=== PATIENT | female | born 1995 | race Caucasian/White ===

== ENCOUNTER 2017-08-05 22:57 | Emergency (ER) | payer OTHER ==
[~2017-08-05] VITALS: Ht 157.5 cm; Wt 80.0 kg
[~2017-08-05 22:57] MED LIST: CLIN150 PO
[2017-08-05 23:00] VITALS: BP 132/79; PULSE 103; RESP 18; TEMP 98; O2SAT 100
--- NOTE | 2017-08-05 23:28 | PD ---
HPI Chief Complaint: Flank/Kidney Pain Time Seen by Provider: 23:11 Travel History International Travel<30 days: No Contact w/Intl Traveler<30days: No Traveled to known affect area: No History of Present Illness HPI The patient is a 21 year old female who presents to the [facility] emergency department with a history of right-sided flank pain that began this morning. She reports that the pain is sharp in character and initially was coming and going, however now it is more constant. She reports that yesterday she did have some dysuria with urinary frequency and urgency. She denies having any prior history of urinary tract infections. She denies having any vaginal discharge or unusual vaginal bleeding. Her last menstrual cycle was 3 weeks ago. She denies having any nausea, vomiting, or diarrhea associated with this. She denies having any abdominal pain. On review of systems otherwise she denies having any recent fevers, cough, congestion, neck pain, chest pain, shortness of breath, or neurologic symptoms. PFS Past Medical History Narrative Medical The patient's past medical history is reportedly none Medical History: Denies Significant Hx Blood Disorders: No Anxiety: No Depression: No Cancer: No Cardiovascular Problems: No Congestive Heart Failure: No Endocrine: No Implanted Vascular Access Dvce: No Musculoskeletal: No Neurologic: No Psychiatric: No Respiratory: No ?: Not LMP: 07/19/17 Past Surgical History Surgical History: No Previous Surgery Other Surgery: No Social History Alcohol Use: Yes (3 times per week) Tobacco Use: Yes (One half pack per day) Substance Use: Yes (MARIJUANA LAST WEEK) Allergies-Medications (Allergen,Severity, Reaction): Coded Allergies: *MDRO Multi-Drug Resistant Organism (Verified Adverse Reaction, Unknown, ) 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) Reported Meds & Prescriptions Reported Meds & Active Scripts Active Bactrim DS (Sulfamethoxazole-Trimethoprim) 800-160 Mg Tab 1 Tab PO BID Review of Systems Except as stated in HPI: all other systems reviewed are Neg General / Constitutional: No: Fever Eyes: No: Visual changes HENT: No: Headaches Cardiovascular: No: Chest Pain or Discomfort Respiratory: No: Shortness of Breath Gastrointestinal: No: Nausea, Vomiting, Diarrhea, Abdominal Pain Genitourinary: Positive: Urgency, Frequency, Dysuria, Flank Pain (Right side) Musculoskeletal: No: Pain Skin: No Rash Neurologic: No: Weakness, Focal Abnormalities, Change in Mentation, Slurred Speech, Sensory Disturbance Psychiatric: No: Depression Endocrine: No: Polydipsia Hematologic/Lymphatic: No: Easy Bruising Physical Exam Narrative General: The patient is a well-developed well-nourished female in no acute distress. Head and Neck exam: Head is normocephalic atraumatic. Eyes: EOMI, pupils are equal round and reactive to light. Nose: Midline septum with pink mucous membranes Mouth: Dentition unremarkable. Moist mucus membranes. Posterior oropharynx is not erythematous. No tonsillar hypertrophy. Uvula midline. Airway patent. Neck: No palpable lymphadenopathy. No nuchal rigidity. No thyromegaly. Cardiovascular: Regular rate and rhythm without murmurs, gallops, or rubs. Lungs: Clear to auscultation bilaterally. No wheezes, rhonchi, or rales. Abdomen: Soft, without tenderness to palpation in all 4 quadrants of the abdomen. No guarding, rebound, or rigidity. Normal bowel sounds are audible. No tenderness on palpation of McBurney's point. Extremities: No clubbing, cyanosis, or edema. 2+ pulses in all 4 extremities. Back: No spinous process tenderness to palpation. Right-sided CVA tenderness to palpation. Neurologic Exam: Grossly nonfocal. Skin Exam: No rash noted. Intact skin that is warm and dry. Data Data Last Documented VS Vital Signs Date Time Temp Pulse Resp B/P (MAP) Pulse Ox O2 Delivery O2 Flow Rate FiO2 08/06/17 03:07 08/05/17 23:42 98.9 92 16 97 Room Air Orders Orders Complete Blood Count With Diff (08/05/17 23:18) Basic Metabolic Panel (Bmp) (08/05/17 23:18) Urinalysis - C+S If Indicated (08/05/17 23:18) Iv Access Insert/Monitor (08/05/17 23:18) Ecg Monitoring (08/05/17 23:18) Oximetry (08/05/17 23:18) Ed Urine Pregnancytest Poc (08/05/17 23:18) Sodium Chlor 0.9% 1000 Ml Inj (Ns 1000 M (08/05/17 23:30) Ondansetron Inj (Zofran Inj) (08/05/17 23:30) Ketorolac Inj (Toradol Inj) (08/05/17 23:30) Urine Culture (08/05/17 23:29) Ct Abd/Pel W/O Iv Contrast (08/06/17 00:17) Ceftriaxone Inj (Rocephin Inj) (08/06/17 01:30) Labs Laboratory Tests Test 08/05/17 23:29 White Blood Count 13.8 TH/MM3 Red Blood Count 4.04 MIL/MM3 Hemoglobin 13.1 GM/DL Hematocrit 37.9 % Mean Corpuscular Volume 93.8 FL Mean Corpuscular Hemoglobin 32.4 PG Mean Corpuscular Hemoglobin Concent 34.5 % Red Cell Distribution Width 13.3 % Platelet Count 294 TH/MM3 Mean Platelet Volume 7.4 FL Neutrophils (%) (Auto) 76.4 % Lymphocytes (%) (Auto) 15.9 % Monocytes (%) (Auto) 6.1 % Eosinophils (%) (Auto) 1.3 % Basophils (%) (Auto) 0.3 % Neutrophils # (Auto) 10.5 TH/MM3 Lymphocytes # (Auto) 2.2 TH/MM3 Monocytes # (Auto) 0.8 TH/MM3 Eosinophils # (Auto) 0.2 TH/MM3 Basophils # (Auto) 0.0 TH/MM3 CBC Comment DIFF FINAL Differential Comment Urine Color LIGHT-YELLOW Urine Turbidity HAZY Urine pH 7.5 Urine Specific [place] 1.006 Urine Protein TRACE mg/dL Urine Glucose (UA) NEG mg/dL Urine Ketones NEG mg/dL Urine Occult Blood MOD Urine Nitrite NEG Urine Bilirubin NEG Urine Urobilinogen LESS THAN 2.0 MG/DL Urine Leukocyte Esterase LARGE Urine RBC 5 /hpf Urine WBC 138 /hpf Urine Squamous Epithelial Cells 2 /hpf Urine Amorphous Sediment RARE Urine Bacteria OCC /hpf Microscopic Urinalysis Comment CULTURE INDICATED Blood Urea Nitrogen 9 MG/DL Creatinine 0.93 MG/DL Random Glucose 89 MG/DL Calcium Level 8.2 MG/DL Sodium Level 138 MEQ/L Potassium Level 3.4 MEQ/L Chloride Level 103 MEQ/L Carbon Dioxide Level 29.4 MEQ/L Anion Gap 6 MEQ/L Estimat Glomerular Filtration Rate 76 ML/MIN MDM Medical Decision Making Medical Screen Exam Complete: Yes Emergency Medical Condition: Yes Medical Record Reviewed: Yes Interpretation(s) Last Impressions Abdomen/Pelvis CT 08/06/17 0017 Signed Impressions: Service Date/Time: Sunday, August 06, 2017 00:34 - CONCLUSION: Left ovarian cyst suspected. The study is otherwise unremarkable. \ Kp Hatch MD Differential Diagnosis Cystitis, versus pyelonephritis, versus kidney stone, versus musculoskeletal strain Narrative Course During the course of the patient's emergency department visit, the patient's history, examination, and differential diagnosis were reviewed with the patient. The patient was placed on a teletypesetter monitor with oximetry and frequent blood pressure monitoring. The patient had IV access obtained and blood work sent for analysis. The patient was initially provided normal saline 1 L IV fluid bolus, Toradol 15 mg IV, Zofran 4 mg IV. The patient's laboratory studies were reviewed and remarkable for A white count of 13.8, hemoglobin 13.1, platelets 294 with 76.4 neutrophils. Basic metabolic profile is remarkable for potassium 3.4, GFR 76, calcium 8.2. Urinalysis shows moderate occult blood, large leukocyte esterase, 5 RBCs, 138 WBCs, occasional bacteria, culture indicated. The patient was given Rocephin 1 g IV for urinary tract infection. A CT scan without IV contrast of the abdomen and pelvis is ordered to rule out underlying kidney stone. CT scan of the abdomen and pelvis showed a left ovarian cyst, no other acute abnormality. The patient will be discharged home on antibiotic. She was given a prescription for Bactrim. The patient is resting comfortably and feels better, is alert and in no distress. The patient's results and examination findings were discussed with the patient. The repeat examination is unremarkable and benign. The history, exam, diagnostic testing, and current condition do not suggest any significant pathology to warrant further testing, continued ED treatment, admission, or surgical evaluation at this point. The vital signs have been stable. The patient does not have uncontrollable pain, intractable vomiting, or other significant symptoms. The patient's condition is stable and appropriate for discharge. The patient will pursue further outpatient evaluation with a primary care physician or other designated or consulting physician as indicated in the discharge instructions. The patient expressed understanding and was agreeable with this plan. Diagnosis Primary Impression: Pyelonephritis Referrals: [facility] 2 days Patient Instructions: General Instructions, Kidney Infection (ED) Med/Other Pt SpecificInfo: Prescription(s) given Scripts Sulfamethoxazole-Trimethoprim (Bactrim DS) 800-160 Mg Tab 1 TAB PO BID for Infection, #20 TAB 0 Refills Prov: Chuyita Schuster MD 08/06/17 Disposition: 01 DISCHARGE HOME Condition: Stable Chuyita Schuster MD Aug 05, 2017 23:28
[2017-08-05] MEDS ORDERED: SODIUM CHLOR 0.9% 1000 ML INJ 1,000 ML IV ONE (23:30)
[2017-08-05] MEDS ORDERED: KETOROLAC TROMETHAMINE 30 MG/ML (IVP) VIAL IV PUSH ONE (23:30)
[2017-08-05] MEDS ORDERED: ONDANSETRON HCL 4 MG/2 ML VIAL IV ONE (23:30)
[2017-08-05 23:42] VITALS: BP 130/77; PULSE 92; RESP 16; TEMP 98.9; O2SAT 97
[2017-08-05 23:45] LABS: AUTOMATED NEUTROPHIL # 10.5 TH/MM3 (1.8-7.7); BASOPHIL % 0.3 % (0.0-2.0); EOSINOPHIL # 0.2 TH/MM3 (0-0.4); EOSINOPHIL % 1.3 % (0.0-4.0); HEMATOCRIT 37.9 % (35.0-46.0); HEMOGLOBIN 13.1 GM/DL (11.6-15.3); LYMPH % 15.9 % (9.0-44.0); LYMPHOCYTE # 2.2 TH/MM3 (1.0-4.8); MEAN CELL VOLUME 93.8 FL (80.0-100.0); MEAN CORPUSCULAR HEMOGLOBIN 32.4 PG (27.0-34.0); MEAN CORPUSCULAR HGB CONC 34.5 % (32.0-36.0); MEAN PLATELET VOLUME 7.4 FL (7.0-11.0); MONO % 6.1 % (0.0-8.0); MONOCYTE # 0.8 TH/MM3 (0-0.9); NEUT % 76.4 % (16.0-70.0); PLATELET COUNT 294 TH/MM3 (150-450); RED BLOOD COUNT 4.04 MIL/MM3 (4.00-5.30); RED CELL DISTRIBUTION WIDTH 13.3 % (11.6-17.2); WHITE BLOOD COUNT 13.8 TH/MM3 (4.0-11.0)
[2017-08-05 23:49] LABS: AMORPHOUS SEDIMENT, URINE RARE; BACTERIA, URINE OCC /hpf; BILIRUBIN, URINE NEG (NEG); BLOOD, URINE MOD (NEG); GLUCOSE,URINE NEG (NEG); KETONE, URINE NEG (NEG); NITRITE,URINE NEG (NEG); PH, URINE 7.5 (5.0-8.5); SQUAMOUS EPITHELIAL CELL URINE 2 /hpf (0-5); URINE COLOR LIGHT-YELLOW (YELLW/STRAW); URINE LEUKOCYTE ESTERASE LARGE (NEG)
[2017-08-05 23:59] LABS: BICARBONATE 29.4 MEQ/L (21.0-32.0); CALCIUM 8.2 MG/DL (8.5-10.1); CREATININE 0.93 MG/DL (0.50-1.00)
--- NOTE | 2017-08-06 00:56 | RADRPT ---
EXAM DATE/TIME: 08/06/2017 00:34 [place] COMPARISON: No previous studies available for comparison. INDICATIONS : Right flank pain with hematuria and dysuria. ORAL CONTRAST: No oral contrast ingested. RADIATION DOSE: 20.06 CTDIvol (mGy) MEDICAL HISTORY : None SURGICAL HISTORY : None. ENCOUNTER: Initial ACUITY: 1 day PAIN SCALE: 5/10 LOCATION: Right flank TECHNIQUE: Volumetric scanning of the abdomen and pelvis was performed. Using automated exposure control and ad justment of the mA and/or kV according to patient size, radiation dose was kept as low as reasonably achievable to obtain optimal diagnostic quality images. DICOM format image data is available electro nically for review and comparison. FINDINGS: There is mild hepatic steatosis. Gallbladder, spleen, pancreas, adrenal glands, kidneys, urinary blad donna unremarkable. No hydronephrosis is seen. No discrete renal calculi or ureteral stones are present . Uterus and right ovary are unremarkable. Left ovary measures 4.4 x 3.5 cm in AP and transverse dime nsion. A 3.7 cm cyst is suspected. No evidence of bowel obstruction. Appendix is normal. No adenopath y or aneurysm. The lung bases are clear. Osseous structures are intact. CONCLUSION: Left ovarian cyst suspected. The study is otherwise unremarkable. \ Kp Hatch MD on August 06, 2017 at 0:51 Board Certified Radiologist. This report was verified electronically.
[2017-08-06] MEDS ORDERED: cefTRIAXone INJ 1,000 MG in SODIUM CHLORIDE 0.9% INJ 100 ML IV ONE (01:30)
[2017-08-06] MEDS ORDERED: BACT800T5 PO (02:51)
== END 2017-08-06 03:13 | disposition home or self-care (01) ==
LOC: NEPE 22:57
DX: N12 Tubulo-interstitial nephritis, not specified as acute or chronic (principal); B96.20 Unspecified Escherichia coli [E. coli] as the cause of diseases classified elsewhere; F17.210 Nicotine dependence, cigarettes, uncomplicated; F12.90 Cannabis use, unspecified, uncomplicated
CPT/HCPCS: 74176; 80048; 81001; 84703; 85025; 87077; 87086; 87186; 96374; 96375; 99284; J0696; J1885; J2405; J7030

== ENCOUNTER 2017-08-12 13:58 | Emergency (ER) | payer OTHER ==
[~2017-08-12] VITALS: Ht 157.5 cm; Wt 81.5 kg
[~2017-08-12 13:58] MED LIST changes: +BACT800T5 PO; -CLIN150 PO
[2017-08-12 14:00] VITALS: BP 120/64; PULSE 95; RESP 17; TEMP 98.3; O2SAT 98
--- NOTE | 2017-08-12 19:00 | PD ---
Physical Exam Date Seen by Provider: Aug 12, 2017 Time Seen by Provider: 17:05 Narrative 21 year old female presents to the emergency department for evaluation of right flank pain. Patient states she was here recently for pyelonephritis. She was called yesterday to start a new antibiotics. Current pain is 5/10. Data Data Last Documented VS Vital Signs Date Time Temp Pulse Resp B/P (MAP) Pulse Ox O2 Delivery O2 Flow Rate FiO2 08/12/17 17:05 08/12/17 14:00 98.3 95 17 98 Room Air Orders Orders Complete Blood Count With Diff (08/12/17 14:13) Basic Metabolic Panel (Bmp) (08/12/17 14:13) Urinalysis - C+S If Indicated (08/12/17 14:13) Ed Urine Pregnancytest Poc (08/12/17 14:13) [facility] Supervised Visit with JUANITA: No Narrative Course 21 year old female presents to the emergency department for evaluation of right flank pain. Patient is initially seen in triage and work up is initiated. Patient left AMA before she could be moved to a medical bed. Diagnosis Primary Impression: Left against medical advice Disposition: 07 AGAINST MEDICAL ADVICE Carole Wren Aug 12, 2017 19:00
== END 2017-08-12 18:05 | disposition left against medical advice (07) ==
LOC: NED 13:58
DX: R10.9 Unspecified abdominal pain (principal)
CPT/HCPCS: 99281

== ENCOUNTER 2017-08-12 19:11 | Emergency (ER) | payer OTHER ==
[~2017-08-12] VITALS: Ht 157.5 cm; Wt 81.8 kg
[2017-08-12 19:14] VITALS: BP 129/60; PULSE 97; RESP 16; TEMP 98.4; O2SAT 98
[2017-08-12 21:05] LABS: AUTOMATED NEUTROPHIL # 8.8 TH/MM3 (1.8-7.7); BASOPHIL # 0.1 TH/MM3 (0-0.2); BASOPHIL % 0.5 % (0.0-2.0); EOSINOPHIL # 0.2 TH/MM3 (0-0.4); HEMATOCRIT 38.7 % (35.0-46.0); HEMOGLOBIN 13.3 GM/DL (11.6-15.3); LYMPHOCYTE # 2.1 TH/MM3 (1.0-4.8); MEAN CELL VOLUME 94.9 FL (80.0-100.0); MEAN CORPUSCULAR HEMOGLOBIN 32.5 PG (27.0-34.0); MEAN CORPUSCULAR HGB CONC 34.3 % (32.0-36.0); MEAN PLATELET VOLUME 7.5 FL (7.0-11.0); MONO % 8.1 % (0.0-8.0); NEUT % 72.4 % (16.0-70.0); PLATELET COUNT 257 TH/MM3 (150-450); RED BLOOD COUNT 4.08 MIL/MM3 (4.00-5.30); RED CELL DISTRIBUTION WIDTH 13.9 % (11.6-17.2); WHITE BLOOD COUNT 12.2 TH/MM3 (4.0-11.0)
[2017-08-12 21:14] LABS: BACTERIA, URINE OCC /hpf; BILIRUBIN, URINE NEG (NEG); BLOOD, URINE NEG (NEG); GLUCOSE,URINE NEG (NEG); KETONE, URINE NEG (NEG); MUCUS URINE FEW /lpf (OCC); NITRITE,URINE NEG (NEG); PH, URINE 5.5 (5.0-8.5); SQUAMOUS EPITHELIAL CELL URINE 4 /hpf (0-5); URINE COLOR YELLOW (YELLW/STRAW); URINE LEUKOCYTE ESTERASE MOD (NEG); WHITE BLOOD CELL CLUMPS RARE
[2017-08-12 21:32] LABS: ALBUMIN 3.9 GM/DL (3.4-5.0); AST (GOT) 20 U/L (15-37); BICARBONATE 26.9 MEQ/L (21.0-32.0); BLOOD UREA NITROGEN 12 MG/DL (7-18); CHLORIDE 100 MEQ/L (98-107); CREATININE 0.95 MG/DL (0.50-1.00); GLOMERULAR FILTRATION RATE 74 ML/MIN (>89); GLUCOSE,RANDOM 86 MG/DL (74-106); SODIUM (NA) 135 MEQ/L (136-145)
[2017-08-12 21:33] LABS: ALT (GPT) 31 U/L (10-53)
[2017-08-12 21:35] LABS: ALKALINE PHOSPHATASE 70 U/L (45-117); TOTAL BILIRUBIN ADULT 0.3 MG/DL (0.2-1.0); TOTAL PROTEIN 7.8 GM/DL (6.4-8.2)
--- NOTE | 2017-08-14 10:32 | PD ---
Physical Exam Date Seen by Provider: Aug 12, 2017 Time Seen by Provider: 19:18 Narrative 21-year-old female presents to the emergency department for evaluation of right flank pain. She was seen here recently for the same and was placed on antibiotics yesterday. Antibiotic was changed yesterday. She states the right flank pain has returned. Current pain as 5/10. Data Data Last Documented VS Vital Signs Date Time Temp Pulse Resp B/P (MAP) Pulse Ox O2 Delivery O2 Flow Rate FiO2 08/12/17 19:14 98.4 97 16 129/60 (83) 98 Orders Orders Complete Blood Count With Diff (08/12/17 19:20) Comprehensive Metabolic Panel (08/12/17 19:20) Urinalysis - C+S If Indicated (08/12/17 19:20) Ed Urine Pregnancytest Poc (08/12/17 19:20) Urine Culture (08/12/17 20:16) Labs Laboratory Tests Test 08/12/17 20:16 White Blood Count 12.2 TH/MM3 Red Blood Count 4.08 MIL/MM3 Hemoglobin 13.3 GM/DL Hematocrit 38.7 % Mean Corpuscular Volume 94.9 FL Mean Corpuscular Hemoglobin 32.5 PG Mean Corpuscular Hemoglobin Concent 34.3 % Red Cell Distribution Width 13.9 % Platelet Count 257 TH/MM3 Mean Platelet Volume 7.5 FL Neutrophils (%) (Auto) 72.4 % Lymphocytes (%) (Auto) 17.0 % Monocytes (%) (Auto) 8.1 % Eosinophils (%) (Auto) 2.0 % Basophils (%) (Auto) 0.5 % Neutrophils # (Auto) 8.8 TH/MM3 Lymphocytes # (Auto) 2.1 TH/MM3 Monocytes # (Auto) 1.0 TH/MM3 Eosinophils # (Auto) 0.2 TH/MM3 Basophils # (Auto) 0.1 TH/MM3 CBC Comment DIFF FINAL Differential Comment Urine Color YELLOW Urine Turbidity HAZY Urine pH 5.5 Urine Specific [place] 1.015 Urine Protein NEG mg/dL Urine Glucose (UA) NEG mg/dL Urine Ketones NEG mg/dL Urine Occult Blood NEG Urine Nitrite NEG Urine Bilirubin NEG Urine Urobilinogen LESS THAN 2.0 MG/DL Urine Leukocyte Esterase MOD Urine RBC 2 /hpf Urine WBC 19 /hpf Urine WBC Clumps RARE Urine Squamous Epithelial Cells 4 /hpf Urine Bacteria OCC /hpf Urine Mucus FEW /lpf Microscopic Urinalysis Comment CULTURE INDICATED Blood Urea Nitrogen 12 MG/DL Creatinine 0.95 MG/DL Random Glucose 86 MG/DL Total Protein 7.8 GM/DL Albumin 3.9 GM/DL Calcium Level 9.0 MG/DL Alkaline Phosphatase 70 U/L Aspartate Amino Transf (AST/SGOT) 20 U/L Alanine Aminotransferase (ALT/SGPT) 31 U/L Total Bilirubin 0.3 MG/DL Sodium Level 135 MEQ/L Potassium Level 3.5 MEQ/L Chloride Level 100 MEQ/L Carbon Dioxide Level 26.9 MEQ/L Anion Gap 8 MEQ/L Estimat Glomerular Filtration Rate 74 ML/MIN MDM Supervised Visit with JUANITA: No Narrative Course 21-year-old female presents to the emergency department for evaluation of right flank pain, currently on antibiotics for UTI. Patient is initially seen in triage and workup is initiated. Patient left AGAINST MEDICAL ADVICE before she could be moved to medical bed. Diagnosis Primary Impression: Left against medical advice Patient Instructions: General Instructions Departure Forms: Tests/Procedures Disposition: 07 AGAINST MEDICAL ADVICE Carole Wren Aug 14, 2017 10:32
== END 2017-08-13 05:28 | disposition left against medical advice (07) ==
LOC: NED 19:11
DX: R10.9 Unspecified abdominal pain (principal)
CPT/HCPCS: 80053; 81001; 84703; 85025; 87086; 99283